=== PATIENT | male | born 1970 | race Caucasian/White ===

== ENCOUNTER 2016-06-14 10:38 | Emergency (ER) | payer OTHER ==
[2016-06-14 10:43] VITALS: BP 122/64; PULSE 57; RESP 16; TEMP 97.7; O2SAT 95
--- NOTE | 2016-06-14 11:43 | EDPHY ---
H & P Stated Complaint: plurex cath coming out DR. Cormier Time Seen by Provider: 06/14/16 11:36 HPI/ROS: CHIEF COMPLAINT: Catheter removal HISTORY OF PRESENT ILLNESS: The patient is a 46-year-old man who has a pleural catheter in place draining a malignant effusion with a history of lung cancer. He was scheduled today to have his catheter removed but when he presented to triage they stated that he could not be admitted. He was confused by this and checked into the emergency department. He states that it is starting to come out on its own any ways. He is here asking for to be removed. REVIEW OF SYSTEMS: Constitutional: denies: chills, fever, recent illness, recent injury EENTM: denies: blurred vision, double vision, nose congestion Respiratory: denies: cough, shortness of breath Cardiac: denies: chest pain, irregular heart rate, lightheadedness, palpitations Gastrointestinal/Abdominal: denies: abdominal pain, diarrhea, nausea, vomiting, blood streaked stools Genitourinary: denies: dysuria, frequency, hematuria, pain Musculoskeletal: denies: joint pain, muscle pain Skin: denies: lesions, rash, jaundice, bruising Neurological: denies: headache, numbness, paresthesia, tingling, dizziness, weakness Hematologic/Lymphatic: denies: blood clots, easy bleeding, easy bruising Immunologic/allergic: denies: HIV/AIDS, transplant EXAM: GENERAL: Well-appearing, well-nourished and in no acute distress. HEAD: Atraumatic, normocephalic. EYES: Pupils equal round and reactive to light, extraocular movements intact, sclera anicteric, conjunctiva are normal. ENT: TMs normal, nares patent, oropharynx clear without exudates. Moist mucous membranes. NECK: Normal range of motion, supple without lymphadenopathy or JVD. LUNGS: Catheter in place left anterior chest, no drainage or erythema. Breath sounds clear to auscultation bilaterally and equal. No wheezes rales or rhonchi. HEART: Regular rate and rhythm without murmurs, rubs or gallops. ABDOMEN: Soft, nontender, normoactive bowel sounds. No guarding, no rebound. No masses appreciated. BACK: No CVA tenderness, no spinal tenderness, step-offs or deformities EXTREMITIES: Normal range of motion, no pitting or edema. No clubbing or cyanosis. NEUROLOGICAL: Cranial nerves II through XII grossly intact. Normal speech, normal gait. 5/5 strength, normal movement in all extremities, normal sensation PSYCH: Normal mood, normal affect. SKIN: Warm, dry, normal turgor, no visible rashes or lesions. Source: Patient Exam Limitations: No limitations - Personal History Current Tetanus/Diphtheria Vaccine: Unsure Current Tetanus Diphtheria and Acellular Pertussis (TDAP): Unsure Tetanus Vaccine Date: 2013 - Medical/Surgical History Hx Asthma: No Hx Chronic Respiratory Disease: No Hx Diabetes: No Hx Cardiac Disease: No Hx Renal Disease: No Hx Cirrhosis: No Hx Alcoholism: No Hx HIV/AIDS: No Hx Splenectomy or Spleen Trauma: No Other PMH: Lung CA - Family History Significant Family History: No pertinent family hx - Social History Smoking Status: Never smoked Alcohol Use: Sober Drug Use: None Constitutional: Initial Vital Signs Temperature (C) 36.5 C 06/14/16 10:41 Heart Rate 57 L 06/14/16 10:41 Respiratory Rate 16 06/14/16 10:41 Blood Pressure 122/64 H 06/14/16 10:41 O2 Sat (%) 95 06/14/16 10:41 O2 Delivery Mode Room Air Allergies/Adverse Reactions: No Known Allergies Allergy (Verified 10/23/13 07:55) Home Medications: Medication Instructions Recorded Herbal Drugs 01/13/16 Xalkori BID 03/08/16 Medical Decision Making ED Course/Re-evaluation: 11:50 a.m. I discussed the case with Dr. Derick Damon who is on-call for Interventional. He states the send the patient upstairs where he has another procedure at 1:00 p.m. and will remove this catheter that time. He asked that I place an order. Patient is agreeable with this plan. He will be discharged to go upstairs to wait. Differential Diagnosis: Partial list of the Differential diagnosis considered include but were not limited to; catheter removal, infection, displacement, but fusion, lung cancer and although unlikely based on the history and physical exam, I also considered , hemorrhage, pneumothorax. I discussed these differential diagnoses and the plan with the patient as well as the usual and expected course. The patient understands that the diagnosis is provisional and that in medicine we are not always correct and that further workup is often warranted. Usual and customary warnings were given. All of the patient's questions were answered. The patient was instructed to return to the emergency department should the symptoms at all worsen or return, otherwise to followup with the physician as we discussed. Departure - Departure Disposition: Home, Routine, Self-Care Clinical Impression: Malfunction of peripheral inserted central catheter Qualifiers: Encounter type: initial encounter Qualifier Code: (T82.598A) Other mechanical complication of other cardiac and vascular devices and implants, initial encounter Condition: Fair Instructions: Tunneled Central Lines in Children (ED) Referrals: Darrin Elam MD [Primary Care Provider] - As per Instructions
== END 2016-06-14 11:51 | disposition home or self-care (01) ==
DX: T82.598A Other mechanical complication of other cardiac and vascular devices and implants, initial encounter (principal); Z85.118 Personal history of other malignant neoplasm of bronchus and lung; Y82.8 Other medical devices associated with adverse incidents

== ENCOUNTER → 2016-06-14 | Outpatient (CLI) | payer OTHER ==
--- NOTE | 2016-06-14 15:09 | IR ---
Removal of Left Pleural [place] Drain History: Cessation of drainage. The patient's breathing and exercise tolerance have improved. Technique: The left hemithorax and the exiting left pleural [place] drain were prepped and draped in s terile fashion. All elements of maximal sterile barrier technique were used, including cap, mask, rory rile gown, sterile gloves, large sterile sheet, hand hygiene, and 2% chlorhexidine for cutaneous anti sepsis. 1% Xylocaine was used for local anesthetic. External portion of the tube was cut, and [employer] tree adapter allowed placement of a syringe for aspiration as the tube was withdrawn from the [address]. No significant fluid was aspirated. Sterile occlusive dressing (petrolatum gauze) was applied. Sp ot images were obtained before removing the tube. The patient tolerated the procedure well and was al lowed to leave the hospital. Fluoroscopy time: 0.1 minute. Estimated exposure in milligray: 5.3. Findings: Compare May 14, May 18, and May 31, 2016. Left pleura is thickened, restrictin g the volume of the left lung, compatible with tumor encasement. The appearance is improved from imag es prior to placement of the most recent tube on May 18, 2016. 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 Impression: 1. Improvement in aeration of left lung, with no residual drainage from current [place] drain. 2. Left pulmonary, left pleural, and osseous neoplasm. 3. Removal of left pleural [place] drain. - - - - - - - - - - - - - - - - - - - - - - - - - - - - - - - - - - - - - - - - - - - - (PQRS Measures: Current medications were listed in the medical record, including all known prescript ions, [id number] medications, herbal medications, and nutritional supplements. Tobacco Use: Non e. Prophylactic antibiotic: Unnecessary. VTE prophylaxis: Unnecessary .) IR Call
== END ==
LOC: FIMAGING 12:09
PROVIDERS: ATTEND Internal Medicine Hematology & Oncology
PROC: 0BPQ30Z Removal of Drainage Device from Pleura, Percutaneous Approach (ICD-10-PCS; principal; 2016-06-14)
DX: Z45.89 Encounter for adjustment and management of other implanted devices (principal)

== ENCOUNTER → 2016-06-22 | Outpatient (CLI) | payer OTHER ==
--- NOTE | 2016-06-22 16:28 | DX ---
PA and Lateral Chest June 22, 2016 Clinical Indications: Follow up lung cancer. Findings: The right lung remains clear. The heart size is normal. A loculated pleural effusion and elevation of the hemidiaphragm is noted on the left side. This is stable compared to multiple prior examinations including March 26, 2016. Metastatic bony disease is again noted. The Pleurx has be en removed in the interval. Impressions 1. Pleural thickening or loculated effusion and elevation of the hemidiaphragm is stable on the left side. 2. Known osseous bony metastatic disease, unchanged.
== END ==
LOC: FIMAGING 11:49
PROVIDERS: ATTEND Internal Medicine Hematology & Oncology
DX: J92.9 Pleural plaque without asbestos (principal); C34.90 Malignant neoplasm of unspecified part of unspecified bronchus or lung; C79.51 Secondary malignant neoplasm of bone

== ENCOUNTER → 2016-12-17 | Outpatient (CLI) | payer OTHER ==
[~2016-12-17] MED LIST: IOPAMIDOL (ISOVUE-300) 100 ML BTL ONE
== END ==
LOC: FIMAGING 08:44
PROVIDERS: ATTEND Internal Medicine Hematology & Oncology
DX: Z12.9 Encounter for screening for malignant neoplasm, site unspecified (principal); C34.90 Malignant neoplasm of unspecified part of unspecified bronchus or lung
CPT/HCPCS: Q9967